=== PATIENT | female | born 1970 | race Caucasian/White ===

== ENCOUNTER 2025-06-11 17:17 | Emergency (ER) | payer BC, SELFPAY ==
[2025-06-11 17:19] VITALS: BP 166/85
[2025-06-11 17:40] LABS: Hematocrit 41.6 % (37.0-47.0); Hemoglobin 14.5 g/dL (12.0-16.0); Mean Corp Hgb Conc. 34.9 g/dL (33.0-37.0); Mean Corpuscular Volume 84.4 fL (81.0-99.0); Nucleated Red Blood Cells % 0 %; Platelet Count 329 10^3/uL (130-400); Red Cell Dist. Width 13.2 % (11.5-14.5)
[2025-06-11 17:48] LABS: INR 1.02; PT 13.7 Sec (11.4-14.6)
[2025-06-11 17:55] LABS: ALT (SGPT) 19 U/L (0-35); AST (SGOT) 23 U/L (14-36); Albumin 4.9 g/dl (3.5-5.0); Alkaline Phosphatase 75 U/L (38-126); Blood Urea Nitrogen 20 mg/dl (7-17); Calcium 9.6 mg/dl (8.4-10.2); Carbon Dioxide 24 mmol/L (22-30); Chloride 107 mmol/L (98-107); Glucose 137 mg/dl (70-99); Potassium 4.0 mmol/L (3.5-5.1); Sodium 140 mmol/L (135-145); Total Protein 8.3 g/dl (6.3-8.2); eGFR > 60.00
[2025-06-11 18:06] LABS: Troponin I < 0.012 ng/ml
--- NOTE | 2025-06-11 18:24 | ED.GENMED ---
History of Present Illness
<Shirin Andre DO, Resident - Last Filed: 06/11/25 22:23>
General
Chief Complaint: Dizziness
Source: patient and significant other
Time Seen by Provider: 06/11/25 18:21
History of Present Illness
History of Present Illness:
Patient is a 55-year-old female past medical history of hypothyroidism presenting with new left calf stiffness and discomfort dizziness and increased shortness of breath. Patient first noticed left calf discomfort 2 weeks ago that is worse on
exertion. Patient first felt it on the posterior aspect of her calf and now feels it down in her ankle and rosario. Patient started noticing dizziness and shortness of breath for 1 day. The dizziness is worse when moving her head. Patient denies
all other ROS. Patient has no history of a blood clot. Patient recently traveled to the [employer] and spent [address] about 10 days ago. Patient takes levothyroxine for her hypothyroidism, and an [id number] digestive
enzyme. Patient has recently changed her diet as her was diagnosed with diabetes. Patient has not noted any changes in her weight. Patient is experiencing hot flashes at night due to menopause. Patient does not sleep well because of the
hot flashes as well as because of chronic right shoulder pain. Patient feels like she has an undiagnosed connective tissue disorder.
Review of Systems
<Shirin Andre DO, Resident - Last Filed: 06/11/25 22:23>
Review of Systems
Allergies reviewed?: Yes
All Other Systems: ROS reviewed and negative except as documented in HPI and ROS
Constitutional: Reports no symptoms
EENT: Reports no symptoms
Respiratory: Reports trouble breathing
Cardiac: Reports no symptoms
ABD/GI: Reports no symptoms
: Reports no symptoms
Musculoskeletal: Reports other (Left calf discomfort)
Skin: Reports no symptoms
Neurological: Reports dizzy
Endocrine: Reports no symptoms
Hematologic/Lymphatic: Reports no symptoms
Psychiatric: Reports no symptoms
Phy Exam
<Shirin Andre DO, Resident - Last Filed: 06/11/25 22:23>
General Physical Exam
General Presentation: well appearing and no apparent distress
General age: appears stated age
General Skin: warm and dry
General Habitus: normal
ENT Exam
ENT Exam: EOMI
Cardiovascular Exam
Cardiovascular Exam: regular rate/rhythm
Heart Sounds: normal
Pulmonary Exam
Pulmonary Exam: lungs clear, no respiratory distress, no crackles and no wheezing
Gastrointestinal Exam
Gastrointestinal Exam: normal bowel sounds, non tender and soft
Neurological Exam
Neurological Exam: alert and oriented x3
Course
<Shirin Andre DO, Resident - Last Filed: 06/11/25 22:23>
Orders/Labs/Results
Orders:
Orders
06/11/25 17:18
EKG [Electrocardiogram (*1)] Urgent
Reason for Study: Vertigo / Dizzy
EKG- Treatment ONCE
06/11/25 17:21
CT Head W/o Iv Contrast Urgent
Comment:
Reason For Exam: persistent dizziness
US Periph Venous LOWER Ext LT Urgent
Comment:
Reason For Exam: calf pain
06/11/25 17:32
Complete Blood Count/With Diff Urgent
Comprehensive Metabolic Panel Urgent
Lyme Progressive Urgent
Comment: ADDON
Prothrombin Time Urgent
TSH Reflex To Free T4 Urgent
Comment: ADD ON
Troponin I Urgent
06/11/25 19:15
Add On- LAB Urgent
Tests Added?: TSH to reflex free T4
06/11/25 19:21
Orthostatic VS- Treatment ONCE
06/11/25 20:01
Add On- LAB Urgent
Tests Added?: lyme progressive
Abnormal Lab Results
06/11/25
17:32
Absolute Neuts (auto) 7.4 H 10^3/uL
(1.4-6.5)
Lymphocytes % 19.5 L %
(20.5-51.1)
BUN 20 H mg/dl
(7-17)
Glucose 137 H mg/dl
(70-99)
Total Protein 8.3 H g/dl
(6.3-8.2)
06/11/25 17:32
06/11/25 17:32
Vital Signs
Initial and Last Documented VS:
Initial Vital Signs
Temp Pulse Resp BP Pulse Ox
98.8 F 101 17 166/85 99
06/11/25 17:19 06/11/25 17:19 06/11/25 17:19 06/11/25 17:19 06/11/25 17:19
Last Documented Vital Signs
Temp Pulse Resp BP Pulse Ox
98.8 F 77 16 149/75 99
06/11/25 17:19 06/11/25 18:48 06/11/25 18:48 06/11/25 18:47 06/11/25 18:24
<Jassi Hudson MD - Last Filed: 06/11/25 22:20>
Orders/Labs/Results
Orders:
Orders
06/11/25 17:18
EKG [Electrocardiogram (*1)] Urgent
Reason for Study: Vertigo / Dizzy
EKG- Treatment ONCE
06/11/25 17:21
CT Head W/o Iv Contrast Urgent
Comment:
Reason For Exam: persistent dizziness
US Periph Venous LOWER Ext LT Urgent
Comment:
Reason For Exam: calf pain
06/11/25 17:32
Complete Blood Count/With Diff Urgent
Comprehensive Metabolic Panel Urgent
Lyme Progressive Urgent
Comment: ADDON
Prothrombin Time Urgent
TSH Reflex To Free T4 Urgent
Comment: ADD ON
Troponin I Urgent
06/11/25 19:15
Add On- LAB Urgent
Tests Added?: TSH to reflex free T4
06/11/25 19:21
Orthostatic VS- Treatment ONCE
06/11/25 20:01
Add On- LAB Urgent
Tests Added?: lyme progressive
Abnormal Lab Results
06/11/25
17:32
Absolute Neuts (auto) 7.4 H 10^3/uL
(1.4-6.5)
Lymphocytes % 19.5 L %
(20.5-51.1)
BUN 20 H mg/dl
(7-17)
Glucose 137 H mg/dl
(70-99)
Total Protein 8.3 H g/dl
(6.3-8.2)
06/11/25 17:32
06/11/25 17:32
Vital Signs
Initial and Last Documented VS:
Initial Vital Signs
Temp Pulse Resp BP Pulse Ox
98.8 F 101 17 166/85 99
06/11/25 17:19 06/11/25 17:19 06/11/25 17:19 06/11/25 17:19 06/11/25 17:19
Last Documented Vital Signs
Temp Pulse Resp BP Pulse Ox
98.8 F 77 16 149/75 99
06/11/25 17:19 06/11/25 18:48 06/11/25 18:48 06/11/25 18:47 06/11/25 18:24
<Shirin Andre DO, Resident - Last Filed: 06/11/25 22:23>
MDM/Problems Addressed
MDM/Problems Addressed:
Peripheral vascular ultrasound showed no sonographic evidence for left lower extremity deep vein thrombosis. CT head showed no acute intracranial abnormality. Lab work is unremarkable. EKG shows normal sinus rhythm with left axis deviation.
Patient's orthostatic vitals within normal limits. Patient ambulated without assistance, no ataxia observed. Patient with normal gait. Patient still noting mild dizziness but not hindering ability to walk. Patient does note that she has not had
much water to drink today, and thinks that may be contributing to her dizziness. Patient will be discharged home, given follow-up information for neurology with Dr. Ely.
<Shirin Andre DO, Resident - Last Filed: 06/11/25 22:23>
*Radiology
Radiology exam reviewed: radiology read reviewed
*Pulse Oximetry
SaO2: 99
Oxygen Mode of Delivery: Room air
Patient hypoxic: no
*EKG
Interpreted by ED Provider?: Yes
*Critical Care Note
Total Time (30-74mins, 75-104mins- exclusive of procedures): Not Applicable
ED Attending Note
<Shirin Andre DO, Resident - Last Filed: 06/11/25 22:23>
-
Portions of this chart may have been created with voice recognition software.� Occasional wrong word or��sound alike� substitutions may have occurred due to the inherent limitations of voice recognition software.
<Jassi Hudson MD - Last Filed: 06/11/25 22:20>
ED Attending Note
Patient seen and examined by attending physician: Yes
ED Attending Note:
Patient presents to ED secondary to ongoing left calf pain over the 2 weeks, along with dizziness especially with movements or ambulation. Patient has had history of vertigo and states that her symptoms are similar, but not as severe. Patient does
admit to drinking water adequately, except today, patient has not had much to eat or drink all day long. Denies fever or chills. Denies headache. Denies neck pain. Denies loss of sensation or weakness. Denies difficulty with ambulation. Denies
recent travel. Denies back pain. Denies recent change in medications. Patient does report having changed her diet over the past 2 months, since her was diagnosed with new onset diabetes. Denies difficulty sleeping. Denies recent weight
gain or loss.
Physical Exam
General: no apparent distress, not acutely ill. afebrile
Head: nc/at. eomi
Neck: supple. no meningeal signs.
Heart: s1/s2 regular rate and rhythm
Lungs: no acute respiratory distress. clear bilaterally
Abdomen: normal bowel sounds. not tender.
Neuro: alert and oriented x 3. no focal neurological deficits
Skin: no rash
Psychiatric: well kept. interactive and cooperative
Extremities: no edema. no calf tenderness.
Patient with an unremarkable workup in ED, including blood work, lower extremity ultrasound, as well as CT head. Patient remains afebrile, hemodynamic stable, and neurologically intact during observation. Orthostatic vital signs checked. Patient
is able to ambulate independently, with steady gait, prior to discharge. Patient with nonspecific symptoms, which may be multifactorial, including recent dietary changes along with mild dehydration. Patient will be advised to continue hydration at
home, along with PCP and/or neurology follow-up as an outpatient. Patient will return to ED with worsening symptoms
Lyme titer pending.
Discharge Plan
Departure
Patient Disposition: Home (Routine Discharge)
Date of Disposition: 06/11/25
Time of Disposition: 22:13
Patient with high blood pressure during this ER visit?: Yes
Discharge Problem:
Dizziness
Instructions: Dizziness, BLOOD PRESSURE
Referrals:
Manuel Ely MD [Active, Neurology]
Edita Valdez CRNP [Family Provider, Family Practice]
Activity Restrictions/Additional Instructions:
Please follow-up outpatient with neurology for ongoing dizziness� Dr. Manuel Santiago. Lyme disease test will result in 3-5 business days. Will call if positive. Please return to the ED if symptoms worsen.
Interventions
Interventions:
*Risk Screen - Suicide Last Done: 06/11/25 17:21
*General Assessment Last Done: 06/11/25 17:21
*Neglect/Abuse Screening Last Done: 06/11/25 17:21
*ED COVID-19 Vaccine History Last Done: 06/11/25 17:21
ED- Neurological Assessment Last Done: 06/11/25 18:50
ED- Cardiac Assessment Last Done: 06/11/25 18:52
ED Swallowing Screen Last Done: 06/11/25 18:50
Discharge Date and Time
Print Language: GREENLANDIC
[2025-06-11 18:47] VITALS: BP 149/75
[2025-06-11 18:50] VITALS: BMI 26.3
[2025-06-11 21:00] VITALS: BP 136/72; BP 148/78; BP 149/81; PULSE 69; PULSE 79; PULSE 86
[2025-06-13 15:31] LABS: Lyme Antibody Screen, EIA Negative (Negative)
== END 2025-06-11 22:26 | disposition home or self-care (01) ==
LOC: EMR 17:17
PROVIDERS: Emergency Medicine; EMERGENCY PHYSICIAN Emergency Medicine; FAMILY PHYSICIAN Registered Nurse
DX: R42 Dizziness and giddiness (principal); E03.9 Hypothyroidism, unspecified; R06.02 Shortness of breath
CPT/HCPCS: 99284; 70450; 80053; 84443; 84484; 85025; 85610; 86618; 93005; 93971